=== PATIENT | female | born 1980 ===

== ENCOUNTER 2019-10-02 10:14 | Outpatient (REF) | payer MEDICAID, SELFPAY ==
[2019-10-02 19:39] LABS: Abs Immature Grans 0.02 k/cumm (0.0-0.09); Absolute Basophil Count 0.01 k/cumm (0.0-0.2); Absolute Eosinophil Count 0.07 k/cumm (0.0-0.7); Absolute Lymphocyte Count 1.77 k/cumm (1.2-3.4); Absolute Monocyte Count 0.57 k/cumm (0.11-0.7); Absolute Neutrophil Count 6.75 k/cumm (1.2-6.7); Basophils % 0.1; Eosinophils % 0.8; HCT 40.4 % (36.0-46.0); HGB 13.6 g/dL (12.0-15.5); Immature Grans % 0.2 %; Lymphocytes % 19.3; Mean Corp. HGB Concentration 33.7 g/dL (32.0-36.0); Mean Corpuscular Hemoglobin 32.6 pg (27.0-33.0); Mean Corpuscular Volume 96.9 fL (80-95); Monocytes % 6.2; Neutrophils % 73.4; Platelet Count 189 x1000/uL (130-400); RBC 4.17 m/cumm (4.00-5.20); White Blood Cell Count 9.19 k/cumm (4.4-10.8)
== END 2019-10-02 10:34 ==
LOC: NCHCN 10:14
PROVIDERS: PCP Internal Medicine; Visit Provider Internal Medicine
DX: C82.20 Follicular lymphoma grade III, unspecified, unspecified site (principal); R04.0 Epistaxis
CPT/HCPCS: 85025

== ENCOUNTER 2022-07-15 15:36 | Outpatient (REF) | payer MEDICAID, SELFPAY ==
[2022-07-15 19:53] LABS: FREE T4 0.86 ng/dL (0.76-1.46); TSH 1.55 uIU/mL (0.36-3.74)
[2022-07-15 20:30] LABS: Vitamin B12 583 pg/mL (193-986)
== END 2022-07-15 15:37 | disposition home or self-care (01) ==
LOC: NCHCN 15:36
PROVIDERS: PCP Internal Medicine; Visit Provider Internal Medicine
DX: R00.2 Palpitations (principal); G56.01 Carpal tunnel syndrome, right upper limb; Z00.00 Encounter for general adult medical examination without abnormal findings
CPT/HCPCS: 82607; 84439; 84443